=== PATIENT | male | born 1960 | race Caucasian/White ===

== ENCOUNTER 2022-03-10 14:15 | Emergency (ER) | payer MEDICAID, SELFPAY ==
--- NOTE | ~2022-03-10 | XR_ITS ---
EXAMINATION: XR CHEST CLINICAL INFORMATION: Shortness of breath, cough. COMPARISON: None TECHNIQUE: 2 views of the chest were obtained. FINDINGS: No significant abnormality is noted involving the heart, lungs, mediastinum, bony thorax or soft tissues. XR/XR chest 2V IMPRESSION: No acute cardiopulmonary process.
[2022-03-10 14:31] VITALS: BP 137/79; PULSE 82; RESP 20; TEMP 36.4; O2SAT 96; BMI 30.4
[2022-03-10 17:00] LABS: COVID-19 Test Negative (Negative); IDNOW Serial# 16C4AD1C; Influenza A Negative (Negative); Influenza B2 Negative (Negative)
[2022-03-10 17:30] VITALS: BP 130/87; PULSE 74; RESP 17; TEMP 36.9; O2SAT 99
--- NOTE | 2022-03-10 18:08 | ED_ITS ---
HPI - URI/Sore Throat General Chief Complaint: Upper Respiratory Symptoms Stated Complaint: Difficulty breathing, cough Time Seen by Provider: 03/10/22 17:29 Source: patient Mode of arrival: ambulatory Limitations: no limitations History of Present Illness MD elicited complaint: cough, sore throat, rhinorrhea and nasal congestion Onset (ago): day(s) (3) Consistency: constant and progressively worsening Severity: moderate Description of mucous: clear, watery and yellow Able to tolerate fluids by mouth: Yes Exacerbating factors: swallowing Relieving factors: nothing Associated symptoms: myalgias, rhinorrhea, nasal congestion and sore throat Treatments prior to arrival: none Related Data Previous Rx's Medication Instructions Recorded azithromycin 250 mg tablet See Rx Instructions .ROUTE 03/10/22 .COMPLEX #6 tab codeine 10 mg-guaifenesin 100 mg/5 5 ml PO Q6H PRN #120 ml 03/10/22 mL oral liquid (Guaifenesin AC) Allergies Allergy/AdvReac Type Severity Reaction Status Date / Time No Known Allergies Allergy Verified 03/10/22 14:34 Review of Systems Review of Systems: Constitutional : + Chills/fatigues/malaise, No Weight loss, No Fever, No Night Sweats ENT/Mouth : No Hearing loss, No Ear Pain, No Nasal Congestion, No Sinus Pain, No Hoarseness, No sore throat, No Rhinorrhea, No Swallowing Difficulty Eyes: No Eye Pain, No Swelling, No Redness, No Foreign Body, No Discharge, No Vision Changes Cardiovascular : No Chest Pain, No SOB, No Dyspnea on Exertion, No Orthopnea, No Edema, No Palpitations Respiratory : + Cough, + Sputum, No Wheezing, No Smoke Exposure, No Dyspnea Gastrointestinal : No Nausea, No Vomiting, No Diarrhea, No Constipation, No abdominal Pain, No Hematochezia, No Melena Genitourinary : no irregular bleeding, No Dysuria, No Urinary Frequency, No Hematuria, No Urinary Incontinence, No Urgency, No Flank Pain, No Urinary Flow Changes, No Hesitancy Musculoskeletal : No joint pain, No Myalgias, No Joint Swelling Skin : No Skin Lesions, No rash Neuro : No Weakness, No Numbness, No Paresthesias, No Loss of Consciousness, No Dizziness, No Headache Psych : No Anxiety/Panic, No Depression, No SI/HI/AH/VH, No Social Issues, Heme/Lymph: No Bruising, No Bleeding,No Lymphadenopathy Endocrine : No Polyuria, No Polydipsia, No Temperature Intolerance Yes all other systems are reviewed and are negative [facility] Past Medical History Attestation statement: The following information was validated with the patient. Medical History Protein in urine Social History Social History Advance Directives: No Advance Directives Information Provided: No Physical Exam Vital Signs: Vital Signs: Last Vital Signs Temp 98.4 F 03/10/22 17:30 Pulse 74 03/10/22 17:30 Resp 17 03/10/22 17:30 BP 130/87 03/10/22 17:30 Pulse Ox 99 03/10/22 17:30 BMI result Body Mass Index 30.4 vital signs have been reviewed as normal and appeared to be correct. Blood pressure normal. Heart rate normal. Respiration rate normal. Temperature normal. Oxygen saturation normal. Appearance: Alert. Oriented X3. No acute distress. Head: Normal external exam. Normocephalic. Atraumatic. Eyes: PERRLA. EOMI. Conjunctiva and sclera normal. Eyelids normal. ENT: EAC normal. TM's Normal. Pharynx normal. Uvula midline. Moist mucous membranes. No lesions/ulcerations or masses noted on the tongue. Normal voice. No trismus noted. No drooling noted. No muffled voice noted. Neck: Normal inspection. Neck supple. FROM. No adenopathy. Thyroid Normal. No meningeal signs. No neck mass noted. CVS: Normal heart rate and rhythm. Heart sound normal. Pulses normal throughout. No murmurs/rales/gallops. Respiratory: No respiratory distress. Painless inspiration. Breath sounds normal. No wheezes/rales/rhonchi noted. Chest nontender. No signs of trauma noted. No accessory muscle usage noted or decreased air movement noted. Abdomen: Soft and nontender. Bowel sounds normal in all 4 quadrants. No distention noted. No organomegaly noted. No visible injury noted. Back: Full range of motion noted. Nontender. Patient neuro intact bilaterally and distally on all 4 extremities. Patient's reflexes intact bilaterally and distally on all 4 extremities. No rashes/lesion/induration/fluctuance or signs of infection noted. Skin: Skin warm and dry. Normal skin color. Normal skin turgor. No rashes/lesions/lacerations noted. Extremities: No lower extremity edema. No calf tenderness is noted. Extremities exhibit normal range of motion and nontender. Neuro: Oriented X 3. No motor deficit. No sensory deficit. Reflexes normal. Normal steady gait. No focal neuro deficits noted. CN's II-XII intact bilate rally? Vascular: + radial pulses/+ 2 distal pedal pulses/+2 dorsalis pedis b/l. Normal cap refill. No cyanosis noted to upper extremity nails and lower extremity toes nails. Course Course Course Narrative: Patient negative for COVID and flu. Chest x-ray within normal limits. Will DC home with antibiotics and symptomatic treatment instructions return if any new or worsening symptoms to follow up with primary care provider. Patient understands agrees with this plan. MDM - URI/Sore Throat Medical Records Attestation: I reviewed the patient's medical records. Lab Data Attestation: I reviewed the patient's lab results. Labs: Lab Results 03/10/22 03/10/22 Range/Units 16:16 16:16 COVID-19 (EFRA) Negative (Negative) COVID-19 Clin Com See Note Influenza Type A (GUY) Negative (Negative) Influenza Type B (GUY) Negative (Negative) Influenza A & B Note See Note Imaging Data Chest x-ray: Attestation: I personally reviewed and interpreted this imaging study as follows: Radiologist's impression: FINDINGS: No significant abnormality is noted involving the heart, lungs, mediastinum, bony thorax or soft tissues. XR/XR chest 2V IMPRESSION: No acute cardiopulmonary process. Discharge Plan Discharge Clinical Impression: Bronchitis Patient Disposition: Home, Self-Care Instructions: Acute Bronchitis (ED) Prescriptions: New azithromycin 250 mg tablet See Rx Instructions .ROUTE .COMPLEX Qty: 6 0RF Rx Instructions: take 500 mg today (day 1), then 250 mg for 4 days (days 2-5) codeine-guaifenesin [Guaifenesin AC] 10-100 mg/5 mL liquid 5 ml PO Q6H PRN (Reason: cold symptoms) Qty: 120 0RF Referrals: Jatinder Rosas MD [Primary Care Provider] - 2 days Stand Alone Forms: Work/School Release
== END 2022-03-10 18:32 | disposition home or self-care (01) ==
PROVIDERS: Emergency Provider Emergency Medicine; PCP Internal Medicine
DX: J40 Bronchitis, not specified as acute or chronic (principal); Z20.822 Contact with and (suspected) exposure to COVID-19
CPT/HCPCS: 71046; 87502; 87635; 99283; 99284

== ENCOUNTER 2023-10-14 08:26 | Emergency (ER) | payer MEDICARE, SELFPAY ==
--- NOTE | ~2023-10-14 | XR_ITS ---
EXAMINATION: XR FOOT, LEFT CLINICAL INFORMATION: Left great toe foot pain COMPARISON: None available. TECHNIQUE: AP, lateral, and oblique views of the left foot. FINDINGS: Questionable minimally displaced fracture versus periarticular osteophyte involving the lateral base of the first proximal phalanx. Correlation with point tenderness. Soft tissue swelling overlying the first metatarsophalangeal joints along its medial and dorsal aspect. Mild multi joint arthritic changes. Plantar calcaneal heel spur. Enthesopathy at the Achilles tendon insertion site. Mild spurring of the dorsal forefoot. As space alignment are otherwise maintained. XR/XR foot LT min 3V IMPRESSION: 1. Questionable minimally displaced fracture versus periarticular osteophyte involving the lateral base of the first proximal phalanx. Correlation with point tenderness. 2. Soft tissue swelling overlying the first metatarsophalangeal joint along its medial and dorsal aspect. 3. Mild multi joint arthritic changes. 4. Plantar calcaneal heel spur. 5. Enthesopathy at the Achilles tendon insertion site.
[2023-10-14 08:43] VITALS: BP 148/81; PULSE 72; RESP 16; TEMP 36.3; O2SAT 98
--- NOTE | 2023-10-14 09:33 | ED_ITS ---
HPI - General Adult General Chief complaint: Extremity Injury, Lower Stated complaint: Swelling left foot Time Seen by Provider: 10/14/23 09:31 Source: patient Mode of arrival: ambulatory Limitations: no limitations History of Present Illness HPI narrative: Patient is a 63 year old assigned male at with no reported medical history presenting to the emergency department today with left great toe pain. Patient states that over the last 2 days he has had left great toe pain, swelling, and warmth. Patient states that he may have dropped something on it at work but he really doesn't remember a specific incident. Patient denies any dizziness, lightheadedness, abdominal pain, nausea, vomiting, fever, chills, blurry vision, double vision, loss of vision, chest pain, difficulty breathing, shortness of breath, back pain, night sweats, pain with urination, increased urinary frequency, increased urinary urgency, blood in his urine or stool, syncope or a near syncopal episode, bowel incontinence, bladder incontinence, bowel retention, bladder retention, or any other complaints at this time. Onset (ago): day(s) (2) Location: left and lower extremity Radiation: non-radiation Severity: mild Severity scale (1-10): 3 Quality: aching and dull Pain Consistency: constant Relieving factors: none Exacerbating factors: none Associated symptoms: denies other symptoms Treatments prior to arrival: none Related Data Previous Rx's Medication Instructions Recorded azithromycin 250 mg tablet See Rx Instructions PO .COMPLEX #6 03/10/22 tabs codeine 10 mg-guaifenesin 100 mg/5 5 ml PO Q6H PRN cold symptoms #120 03/10/22 mL oral liquid (Guaifenesin AC) mL naproxen 500 mg tablet 500 mg PO BID 7 days #14 tabs 10/14/23 prednisone 20 mg tablet 20 mg PO DAILY 7 days #7 tabs 10/14/23 Allergies Allergy/AdvReac Type Severity Reaction Status Date / Time No Known Allergies Allergy Verified 10/14/23 08:40 Review of Systems Constitutional: Constitutional: Reports no additional constitutional complaints, Denies chills, Denies fever(s) and Denies night sweats Eyes: Eyes: Reports no additional eye complaints, Denies blurry vision, Denies change in vision, Denies diplopia, Denies eye discharge, Denies loss of vision and Denies eye pain ENT: Denies dizziness Cardiovascular: Cardiovascular: Reports no additional cardiovascular complaints, Denies chest pain, Denies lightheadedness, Denies Loss of Consciousness and Denies dyspnea Respiratory: Respiratory: Reports no additional respiratory complaints and Denies dyspnea Gastrointestinal: Gastrointestinal: Reports no additional gastrointestinal complaints, Denies abdominal pain, Denies melena, Denies hematochezia, Denies change in bowel habits and Denies change in stool character Genitourinary: Genitourinary: Reports no additional male genitourinary complaints, Denies hematuria, Denies oliguria, Denies difficulty urinating, Denies dysuria, Denies urinary frequency, Denies urinary hesitancy, Denies urinary incontinence and Denies urinary urgency Musculoskeletal: Musculoskeletal: Reports no additional musculoskeletal complaints, Denies numbness and Denies tingling Comments: left great toe pain and swelling Neurologic: Denies dizziness, Denies loss of vision, Denies numbness and Denies tingling Psychiatric: Psychiatric: Reports no additional psychiatric complaints Endocrine: Endocrine: Reports no additional endocrine complaints Hematologic/Lymphatic: Hematologic/Lymphatic: Reports no additional hematologic/lymphatic complaints Allergic/Immunologic: Allergic/Immunologic: Reports no additional allergic/immunologic complaints PMFSH Past Medical History Attestation statement: The following information was validated with the patient. Source: old records reviewed and nursing notes reviewed Medical History Protein in urine Social History Social History Advance Directives: No Advance Directives Information Provided: Yes Physical Exam ED Vital Signs: Vital Signs - 24 hr 10/14/23 08:43 Temperature 97.3 F Pulse Rate 72 Respiratory Rate 16 Blood Pressure 148/81 H Pulse Oximetry 98 Oxygen Delivery Method Room Air BMI result Body Mass Index 30.0 Const General: cooperative, no acute distress, alert and awake Nutritional Appearance: well nourished Orientation/consciousness: patient oriented x3 Limitations: no limitations HENMT Head: Yes normal to inspection and Yes atraumatic Ears: hearing grossly normal bilaterally and external ears normal General nose exam: Normal external nose present, no nasal discharge noted and no epistaxis Face and sinus: Yes normal facial exam, No abrasion and No laceration Mouth: Normal oral and palatal mucosa present, no drooling and no muffled voice Eyes General: appearance normal, both eyes and all related structures Periorbital: periorbital findings normal Eyelids: Yes eyelids normal Conjunctivae: conjunctivae normal Pupils: Equal, round and reactive pupils present EOM: EOMs intact bilaterally Neck Neck: Yes normal visual inspection, Yes full ROM and Yes no lymphadenopathy Chest Chest palpation & inspection: normal inspection of the chest Resp Effort & Inspection: normal respiratory effort and able to speak in complete sentences GI Inspection: Yes normal to inspection Neuro General: patient oriented x3 and moves all extremities Cranial nerves: Yes Equal, round and reactive pupils present Cognition (Neuro): normal cognition Motor exam (neuro): 5/5 motor strength present throughout Sensory Exam: Normal double simultaneous stimulation for sensation Coordination: [id number] test normal Extrem Other: minimal swelling present to the dorsal aspect of the left great toe with some warmth and erythema General: Yes full ROM and Yes capillary refill normal Psych Appearance: grossly normal Mental Status: mental status grossly normal Affect: normal affect Attitude: cooperative Thought process: Normal thought process present Thought content: Normal thought content present Insight: Good insight present (Psych) Procedures Orthopedic Splinting/Casting Injury #1: Side: left Lower Extremity Injury Location: toe Lower Extremity Immobilizer: boot orthosis Medical Decision Making Medical Decision Making MDM Narrative: Patient is a 63 year old assigned male at with no reported medical history presenting to the emergency department today with left great toe pain. Patient's physical exam was as noted in the physical exam portion of this note. Patient's left foot x-ray showed a questionable minimally displaced fracture versus periarticular osteophyte involving the base of the first proximal phalanx. Patient's clinical presentation is most consistent with gout however, given the x-ray findings, will also treat as fracture. I explained my physical exam findin gs as well as all test results to the patient. I answered all questions asked by the patient. Patient's left foot was placed in a walking boot, without incident. Patient's PMS was intact prior to and after boot placement. I stressed the importance of the patient taking his medication as prescribed. I stressed the importance of the patient following up with his primary care provider and an orthopedic provider. I stressed the importance of the patient returning to the emergency department immediately if his symptoms were to worsen or if he were to develop any dizziness, shortness of breath, difficulty breathing, chest pain, blurry vision, loss of vision, nausea, vomiting, abdominal pain, fever, chills, back pain, or any other complaints. Patient verbalized agreement and understanding with this treatment plan and discharge. Differential Diagnosis Differential Diagnoses: The differential diagnosis associated with the presentation includes Gout Toe fracture Foot fracture Independent Interpretation I performed an independent interpretation of an: Plain X-Ray Interpretation: My interpretation is in agreement with the radiologist's impression of this imaging study. EXAMINATION: XR FOOT, LEFT CLINICAL INFORMATION: Left great toe foot pain COMPARISON: None available. TECHNIQUE: AP, lateral, and oblique views of the left foot. FINDINGS: Questionable minimally displaced fracture versus periarticular osteophyte involving the lateral base of the first proximal phalanx. Correlation with point tenderness. Soft tissue swelling overlying the first metatarsophalangeal joints along its medial and dorsal aspect. Mild multi joint arthritic changes. Plantar calcaneal heel spur. Enthesopathy at the Achilles tendon insertion site. Mild spurring of the dorsal forefoot. As space alignment are otherwise maintained. XR/XR foot LT min 3V IMPRESSION: 1. Questionable minimally displaced fracture versus periarticular osteophyte involving the lateral base of the first proximal phalanx. Correlation with point tenderness. 2. Soft tissue swelling overlying the first metatarsophalangeal joint along its medial and dorsal aspect. 3. Mild multi joint arthritic changes. 4. Plantar calcaneal heel spur. 5. Enthesopathy at the Achilles tendon insertion site. Dictated By: Harris Epstein MD Signed By: Electronically signed by Harris Epstein MD 10/14/23 0940 Radiology Impression Discussion of test interpretation with radiology: I have reviewed the radiologist's reading. Prescription Management I considered prescription management with: Pain Medication (patient prescribed pain medication) Discharge Plan Discharge Clinical Impression: Gout, Fracture of toe Patient Disposition: Home, Self-Care Instructions: Toe Fracture (ED), Low Purine Diet (ED), Gout (ED), Walking Boot (ED) Additional Instructions: Follow up with your primary care provider and an orthopedic provider. Return to the emergency department immediately if your symptoms worsen or if you develop any dizziness, shortness of breath, difficulty breathing, chest pain, blurry vision, loss of vision, nausea, vomiting, abdominal pain, fever, chills, back pain, or any other complaints. Prescriptions: New prednisone 20 mg tablet 20 mg PO DAILY 7 Days Qty: 7 0RF naproxen 500 mg tablet 500 mg PO BID 7 Days Qty: 14 0RF No Action azithromycin 250 mg tablet See Rx Instructions .ROUTE .COMPLEX Qty: 6 0RF Rx Instructions: take 500 mg today (day 1), then 250 mg for 4 days (days 2-5) codeine-guaifenesin [Guaifenesin AC] 10-100 mg/5 mL liquid 5 ml PO Q6H PRN (Reason: cold symptoms) Qty: 120 0RF Referrals: [facility] [Provider Group] (Call to establish and follow up with an orthopedic provider. ) Jatinder Rosas MD [Primary Care Provider] - Stand Alone Forms: Work/School Release Print Language: Bengali
[2023-10-14] MEDS: predniSONE 20 MG TABLET PO (10:39)
[2023-10-14] MEDS: Ketorolac Tromethamine 15 MG/ML VIAL IM (10:39)
[2023-10-14 10:53] VITALS: BP 146/77; PULSE 59; RESP 16; TEMP 36.8; O2SAT 97
== END 2023-10-14 10:55 | disposition home or self-care (01) ==
PROVIDERS: Emergency Provider Student in an Organized Health Care Education/Training Program; PCP Internal Medicine
DX: M10.9 Gout, unspecified (principal); S92.412A Displaced fracture of proximal phalanx of left great toe, initial encounter for closed fracture; X58.XXXA Exposure to other specified factors, initial encounter; Y93.9 Activity, unspecified; Y92.9 Unspecified place or not applicable; Y99.9 Unspecified external cause status
CPT/HCPCS: 73630; 96372; 99284; J1885

== ENCOUNTER 2023-10-30 08:29 | Emergency (ER) | payer MEDICARE, SELFPAY ==
[2023-10-30 09:08] VITALS: BP 137/84; PULSE 85; RESP 18; TEMP 36.6; O2SAT 96; BMI 30.1
--- NOTE | 2023-10-30 09:21 | PC.NURSE ---
refusing all swabs except Strep.
[2023-10-30 09:32] LABS: IDNOW Serial# 58CA691E; Strep A Nucleic Acid Negative (Negative)
--- NOTE | 2023-10-30 09:59 | MHC.EDTECH ---
Patient stated that he did not want to be tested for flu and covid. Made PA aware.
--- NOTE | 2023-10-30 10:02 | ED_ITS ---
HPI - General Adult General Chief complaint: Fever Stated complaint: Fever Sore Throat Time Seen by Provider: 10/30/23 09:51 Source: patient Mode of arrival: ambulatory Limitations: no limitations History of Present Illness HPI narrative: 63-year-old male history of diabetes presents to ED for sore throat only since last night. Patient denies any drooling, change in voice, chest pain, shortness of breath, or neck swelling. Patient denies any coughing chest pain ear pain rash night sweats, weight loss, diarrhea, abdominal pain, symptoms, or vomiting. Related Data Previous Rx's Medication Instructions Recorded azithromycin 250 mg tablet See Rx Instructions PO .COMPLEX #6 03/10/22 tabs codeine 10 mg-guaifenesin 100 mg/5 5 ml PO Q6H PRN cold symptoms #120 03/10/22 mL oral liquid (Guaifenesin AC) mL naproxen 500 mg tablet 500 mg PO BID 7 days #14 tabs 10/14/23 prednisone 20 mg tablet 20 mg PO DAILY 7 days #7 tabs 10/14/23 Allergies Allergy/AdvReac Type Severity Reaction Status Date / Time No Known Allergies Allergy Verified 10/30/23 09:08 Review of Systems Review of Systems: Sore throat Yes all other systems are reviewed and are negative [facility] Past Medical History Medical History Protein in urine Social History Social History Advance Directives: No Advance Directives Information Provided: No Physical Exam ED Vital Signs: Vital Signs - 24 hr 10/30/23 09:08 10/30/23 10:46 Temperature 98 F Pulse Rate 85 Respiratory Rate 18 18 Blood Pressure 137/84 Pulse Oximetry 96 Oxygen Delivery Method Room Air BMI result Body Mass Index 30.1 Const General: cooperative, healthy appearing, comfortable, no acute distress, well developed, alert, awake and Physically active Orientation/consciousness: oriented to person, oriented to place, oriented to time and patient oriented x3 HENMT Head: Yes normal to inspection, Yes No palpable skull fracture present, Yes normocephalic and Yes atraumatic Ears: hearing grossly normal bilaterally, external ears normal, TM's normal bilaterally, TM normal on the right, TM normal on the left, EAC's normal, mastoids normal and no periauricular adenopathy Throat: Yes posterior oropharynx normal, Yes tonsils normal and Yes uvula midline Eyes General: appearance normal, both eyes and all related structures Neck Neck: Yes normal visual inspection, Yes full ROM, Yes no lymphadenopathy, Yes no meningeal signs, Yes trachea midline, Yes supple, No anterior neck swelling and No tender Chest Chest palpation & inspection: normal inspection of the chest and normal palpation of entire chest wall Resp Effort & Inspection: normal respiratory effort and able to speak in complete sentences Auscultation: clear to auscultation bilaterally Cardio Jugular venous distension: no JVD Heart sounds: S1 normal heart sound present and S2 normal heart sound present GI Inspection: Yes normal to inspection Palpation (GI): Soft to palpation, not firm, nontender, no guarding and not rigid General: Yes no CVA tenderness Back/Spine/Pelvis Back: no CVA tenderness and No back tenderness Skin General skin exam: no rashes or lesions noted, elasticity normal and turgor normal Neuro General: oriented to person, oriented to place, oriented to time, patient oriented x3, gait normal, tone normal, moves all extremities, Normal light touch and pain sensation, no meningeal signs, no focal motor deficits, CN's II-XI intact bilaterally and normal sensation to monofilament Extrem General: Yes normal to inspection, Yes full ROM and Yes capillary refill normal Psych Appearance: grossly normal, well kempt and not disheveled Medical Decision Making Medical Decision Making [facility] Narrative: 63-year-old male history diabetes presents to ED for sore throat only since last night without any other constitutional symptoms. Patient denies any drooling, chest pain, shortness of breath, or neck swelling. Strep swab negative. Patient refused COVID influenza swab. Negative for neck swelling or facial swelling. Patient denies any shortness of breath. Not suspecting Luigi angina, retropharyngeal abscess, peritonsillar abscess, or anaphylaxis. Differential Diagnosis Differential Diagnoses: The differential diagnosis associated with the presentation includes ( COVID, strep, influenza, RSV) Lab Data [facility] Lab Attestation statement: I reviewed the patient's lab results. Labs: Lab Results 10/30/23 Range/Units 09:19 S. pyogenes GrpA GUY Negative (Negative) External Record Review External record reviewed: Other ( prior visit) Chronic Conditions Patient?s care impacted by: Diabetes Discharge Plan Discharge Clinical Impression: Sore throat Patient Disposition: Home, Self-Care Instructions: Pharyngitis (ED) Additional Instructions: return to ED immediately for any drooling, change in voice, neck swelling, inability tolerate solid food/ liquids, intractable fever, chills, rash, facial swelling, chest pain, shortness of breath, coughing up blood, or any other concerning symptoms. Please follow-up with your primary care provider. [id number] cepacol lozenges can be used for relief. Tylenol Motrin can be used for fever pain relief Prescriptions: No Action azithromycin 250 mg tablet See Rx Instructions .ROUTE .COMPLEX Qty: 6 0RF Rx Instructions: take 500 mg today (day 1), then 250 mg for 4 days (days 2-5) codeine-guaifenesin [Guaifenesin AC] 10-100 mg/5 mL liquid 5 ml PO Q6H PRN (Reason: cold symptoms) Qty: 120 0RF prednisone 20 mg tablet 20 mg PO DAILY 7 Days Qty: 7 0RF naproxen 500 mg tablet 500 mg PO BID 7 Days Qty: 14 0RF Interventions: ED Discharge Assessment Last Done: 10/30/23 10:47 Discharge Date/Time: 10/30/23 10:47 Print Language: [place]
[2023-10-30 10:46] VITALS: RESP 18
== END 2023-10-30 10:47 | disposition home or self-care (01) ==
PROVIDERS: Emergency Provider Emergency Medicine; PCP Internal Medicine
DX: J02.9 Acute pharyngitis, unspecified (principal); R07.9 Chest pain, unspecified; R06.02 Shortness of breath
CPT/HCPCS: 87651; 99283

== ENCOUNTER 2025-03-16 13:11 | Outpatient (REF) | payer MEDICARE, SELFPAY ==
--- NOTE | ~2025-03-16 | XR_ITS ---
CLINICAL HISTORY: LOW BACK PAIN 5 view, pelvis and bilateral hip Comparison: None Findings: No acute fracture or dislocation. Periarticular osteophyte formation at the bilateral hip joints. The soft tissues are unremarkable. IMPRESSION: No acute findings. This document has been electronically signed by: Scarlet Engel MD on 03/16/2025 17:50:37
== END 2025-03-16 13:12 | disposition home or self-care (01) ==
LOC: HO.XRAY 13:11
PROVIDERS: PCP Internal Medicine; Visit Provider Nurse Practitioner Women's Health
DX: M16.0 Bilateral primary osteoarthritis of hip (principal)
CPT/HCPCS: 73521

== ENCOUNTER → 2025-03-16 13:20 | Outpatient (BNV) | payer MEDICARE, SELFPAY | PROVIDERS: PCP Internal Medicine; Visit Provider Radiology Diagnostic Radiology | DX: M54.50 Low back pain, unspecified (principal) | CPT/HCPCS: 73521 ==

== ENCOUNTER 2025-04-04 14:19 | Outpatient (REF) | payer MEDICARE, SELFPAY ==
--- NOTE | ~2025-04-04 | XR_ITS ---
Exam: Five-view x-ray lumbar spine TECHNIQUE: AP, lateral, bilateral oblique, and lateral spot view x-rays lumbar spine INDICATION: Low back pain COMPARISON: None FINDINGS: Mild degenerative sclerosis is noted in the right greater than left SI joints. There are 5 nonrib-bearing lumbar sequence. T12-L1: There is mild disc space narrowing with calcification in the anterior disc annulus. L1-2: There is mild disc space narrowing and mild degenerative endplate irregularity involving L2. L2-3: There is minimal disc space narrowing. L3-4: Disc spaces preserved. L4-5: Disc space is preserved. There is facet sclerosis. L5-S1: There is mild mild disc space narrowing and endplate osteophytes with sclerosis. There is facet sclerosis. There is likely bony foraminal narrowing. XR/XR lumbar spine 4V min IMPRESSION: Multilevel degenerative disc disease is most advanced at L5-S1 where there is suspected foraminal narrowing. Electronically signed by: Zeeshan Christian MD 04/04/2025 06:19 PM EDT
== END 2025-04-04 14:20 | disposition home or self-care (01) ==
LOC: HO.XRAY 14:19
PROVIDERS: PCP Internal Medicine; Visit Provider Nurse Practitioner Women's Health
DX: M47.816 Spondylosis without myelopathy or radiculopathy, lumbar region (principal)
CPT/HCPCS: 72110

== ENCOUNTER → 2025-04-04 14:30 | Outpatient (BNV) | payer MEDICARE, SELFPAY | PROVIDERS: PCP Internal Medicine; Visit Provider Radiology Diagnostic Radiology | DX: M51.360 Other intervertebral disc degeneration, lumbar region with discogenic back pain only (principal) | CPT/HCPCS: 72110 ==

== ENCOUNTER 2025-04-19 18:10 | Outpatient (REF) | payer MEDICARE, SELFPAY ==
--- NOTE | ~2025-04-19 | MR_ITS ---
EXAMINATION: MR LUMBAR SPINE WITHOUT CONTRAST CLINICAL INFORMATION: Tear at mid lumbar level COMPARISON: Correlated to x-ray dated April 04, 2025. TECHNIQUE: MRI of the lumbar spine was obtained using routine sequences without contrast. FINDINGS: Last rib-bearing vertebra labeled T12. Decreased intervertebral disc signal and height at L5-S1. Decreased intervertebral disc signal at L4-5. Focal hyperintense T2 STIR signal in the posterior intervertebral disc L4-5 likely focal annular fissure. Bone marrow inhomogeneity. No bone marrow STIR signal abnormality. Modic type II endplate changes at L5-S1. There is normal alignment. Conus medullaris ends at pedicle of L1 with normal signal. T12-L1: Facet joint ligamentum flavum hypertrophy. No disc herniation. No central spinal canal or neuroforamina stenosis. L1-2: Facet joint ligamentum flavum hypertrophy. Mild broad-based disc bulging. No compression upon neural elements. L2-3: Broad-based disc bulging. Facet joint and ligamentum flavum hypertrophy. Reduced AP diameter of the thecal sac. No neuroforamina stenosis. L3-4: Broad-based disc bulging. Facet joint and ligamentum flavum hypertrophy. Reduced AP diameter of the thecal sac and neuroforamina. L4-5: Broad-based disc bulging. Facet joint and ligamentum flavum hypertrophy. Reduced AP diameter of the thecal sac. Bilateral neuroforamina narrowing. There is encroachment of the L5 and L4 exiting nerve roots. L5-S1: Broad-based disc bulging. Facet joint hypertrophy. Reduced AP diameter of the thecal sac. Bilateral neuroforamina stenosis encroaching the L5 exiting nerve roots. No prevertebral compartment hematoma, mass or fluid collections. Hyperintense T2 cystic lesions in the parapelvic kidneys MR/MR lumbar spine wo con IMPRESSION: Multilevel lumbar spondylosis L2-3 to L5-S1 more pronounced at L4-5 and L5-S1 encroaching the exiting nerve roots and the neural elements of the thecal sac at L4-5 and L3-4. Electronically signed by: Jamey Renteria MD 04/20/2025 07:18 AM EDT
== END 2025-04-19 18:11 | disposition home or self-care (01) ==
LOC: HO.MRI 18:10
PROVIDERS: Visit Provider Nurse Practitioner Women's Health
DX: M51.360 Other intervertebral disc degeneration, lumbar region with discogenic back pain only (principal); M47.816 Spondylosis without myelopathy or radiculopathy, lumbar region; M47.817 Spondylosis without myelopathy or radiculopathy, lumbosacral region
CPT/HCPCS: 72148

== ENCOUNTER → 2025-04-19 18:19 | Outpatient (BNV) | payer MEDICARE, SELFPAY | PROVIDERS: Visit Provider Radiology Diagnostic Radiology | DX: M47.817 Spondylosis without myelopathy or radiculopathy, lumbosacral region (principal) | CPT/HCPCS: 72148 ==

== ENCOUNTER 2025-07-01 10:44 | Emergency (ER) | payer MEDICARE, SELFPAY ==
--- NOTE | ~2025-07-01 | CT_ITS ---
CLINICAL HISTORY: low abd pain, hematuria w straining R O obs stone CT abdomen and pelvis with contrast Comparison: None. Findings: The lung bases are clear. There are bilateral parapelvic renal cysts. The gallbladder in the rest of the solid organs are normal. No bowel obstruction, pneumoperitoneum, or pneumatosis. There is mild prostatomegaly. There are small bilateral inguinal hernias containing fat only. The urinary bladder is normal. No acute fracture. IMPRESSION: No acute findings. Other findings as above. This document has been electronically signed by: Garcia Garcia MD on 07/01/2025 13:01:06
[2025-07-01 10:45] VITALS: BP 128/77; PULSE 66; RESP 16; TEMP 36.6; O2SAT 95; BMI 30.3
[2025-07-01 11:15] LABS: MANUAL DIFF FLAG NO
[2025-07-01 11:17] LABS: Hematocrit 41.1 % (42.0-52.0); Hemoglobin 14.5 g/dl (14.0-18.0); Imm Gran Abs Auto 0.01 X10*3/uL (0.00-0.03); Imm Gran Pct Auto 0.2 % (0.0-0.4); Lymphocytes Absolute Auto 2.1 X10*3/uL (1.2-4.9); Mean Corpuscular HGB Conc 35.3 g/dl (31.0-36.0); Mean Corpuscular Hemoglobin 30.3 pg (27.0-33.0); Mean Corpuscular Volume 85.8 fL (80.0-98.0); NRBC Abs Auto 0.000 X10*3/uL (0.0-0.012); NRBC Pct Auto 0.0 /100WBC (0.0-0.2); Platelet Count 200 X10*3/uL (160-400); Red Blood Count 4.79 X10*6/uL (4.60-5.80); White Blood Count 6.2 X10*3/uL (4.8-10.8)
[2025-07-01 11:23] LABS: Appearance Urine Clear; Glucose Urine UA Negative (Negative); PH 6.0 (5.0-9.0); Specific Gravity - Urine 1.015 (1.005-1.025); UMIC TRIGGER UACC YES
[2025-07-01 11:32] LABS: Alanine Aminotransferase 36 U/L (0-40); Albumin Level 4.2 g/dL (3.5-5.0); Alkaline Phosphatase 82 U/L (39-117); Anion Gap 14 (12-20); Aspartate Amino Transferase 29 U/L (5-37); Blood Urea Nitrogen 24 mg/dL (9-16); Calcium 9.1 mg/dL (8.4-10.2); Carbon Dioxide 22 mmol/L (22-29); Chloride 110 mmol/L (96-108); Creatinine Clr Calc Pharmacy 95.1; Estimated Glomerular Filt Rate > 60; Potassium 4.1 mmol/L (3.3-5.1); Sodium 142 mmol/L (135-145); Total Protein 7.1 g/dL (6.5-8.0)
[2025-07-01] MEDS: iohexoL 350 MG/ML 100 ML INFUS..BTL IV (11:56)
--- NOTE | 2025-07-01 11:58 | ED.MALEGU ---
HPI - Male Genitourinary General Chief complaint: Urogenital-Male Stated complaint: blood in urine Time Seen by Provider: 07/01/25 11:00 Source: patient, RN notes reviewed and old records reviewed Mode of arrival: ambulatory Limitations: no limitations History of Present Illness ED Provider: Atiya Pelayo PA-C HPI Narrative: 64-year-old male medical history of T2DM presents to the ED due to 1 day of blood in the urine. Patient states last night when urinating he felt ?clogged? had to strain to get the urine out and noticed something come out of the urethra with bloody urine following. Patient states he woke up this morning with the same episode of straining feeling something come out of the urethra and noticing blood. Patient denies blood clots, states he could not see what came out of the urethra. No history of kidney stones in the past. No tobacco history. Denies painful urination, burning with urination, urinary frequency, abdominal pain, flank pain, nausea, vomiting, fevers, black/tarry stool, diarrhea Related Data Previous Rx's ?Medication ?Instructions ?Recorded azithromycin 250 mg tablet See Rx Instructions PO .COMPLEX #6 03/10/22 tabs codeine 10 mg-guaifenesin 100 mg/5 5 ml PO Q6H PRN cold symptoms #120 03/10/22 mL oral liquid (Guaifenesin AC) mL naproxen 500 mg tablet 500 mg PO BID 7 days #14 tabs 10/14/23 prednisone 20 mg tablet 20 mg PO DAILY 7 days #7 tabs 10/14/23 Allergies Allergy/AdvReac Type Severity Reaction Status Date / Time No Known Allergies Allergy Verified 07/01/25 10:49 Review of Systems Review of Systems: CONST: Negative for fever, body aches and chills. HENT: Negative for neck pain/stiffness, headache, congestion, sore throat, swelling. EYES: Negative for discharge/pain or vision changes. RESP: Negative for cough/hemoptysis and shortness of breath. CV: Negative chest pain, difficulty breathing, palpitations. ABD: Negative pain, nausea, vomiting. : Negative increase frequency, dysuria, blood in stool. POS blood in urine, straining MUSC: Negative for muscle aches, edema. SKIN: Negative rash, lesions/sores. NEURO: Negative headache, dizziness, weakness. Yes all other systems are reviewed and are negative [facility] Past Medical History Attestation statement: The following information was validated with the patient. Source: old records reviewed and nursing notes reviewed Medical History Protein in urine Social History Social History Advance Directives: No Advance Directives Information Provided: No Physical Exam Vital Signs: Vital Signs: Last Vital Signs Temp 97.8 F 07/01/25 13:41 Pulse 66 07/01/25 13:41 Resp 16 07/01/25 13:41 BP 128/77 07/01/25 13:41 Pulse Ox 95 07/01/25 13:41 O2 Del Method Room Air 07/01/25 13:41 BMI result Body Mass Index 30.3 GENERAL APPEARANCE: ?AxOx4, generally well-appearing, no acute distress. HEENT: ?NC, AT. MMM. EOMI, clear conjunctiva, oropharynx clear. NECK: ?Supple without lymphadenopathy.? No stiffness or restricted ROM. HEART:? Normal rate and regular rhythm, normal S1/S2, no m/r/g LUNGS:? CTAB, moving air well. No crackles or wheezes are heard. ABDOMEN: ?Soft, nontender, nondistended with good bowel sounds heard. BACK: No CVAT, no obvious deformity. EXTREMITIES: ?Without cyanosis, clubbing or edema. NEUROLOGICAL: ?Grossly nonfocal. Alert and oriented, moving all 4 extremities. Observed to ambulate with normal gait. Skin: ?Warm and dry without any rash. Medications Administered Discontinued Medications Generic Name Dose Route Start Last Admin Trade Name Freq PRN Reason Stop Dose Admin Iohexol 100 ml 07/01/25 11:55 07/01/25 11:56 Iohexol 350 Mg/Ml 100 Ml Infus..Btl IV 07/01/25 11:56 85 ml ONCE ONE Administration Medical Decision Making Medical Decision Making MDM Narrative: 64-year-old male medical history of T2DM presents to the ED due to 1 day of blood in the urine. Patient states last night when urinating he felt ?clogged? had to strain to get the urine out and noticed something come out of the urethra with bloody urine following. Patient states he woke up this morning with the same episode of straining feeling something come out of the urethra and noticing blood. VS on initial observation-normotensive with BP 128/77, pulse rate of 66, respiratory rate of 16, afebrile with oral temp of 97.8?, O2 saturation 95% on room air. On physical exam patient without CVAT, abdomen soft, nontender, no distention, no rigidity, patient well-appearing, nontoxic appearing. Plan: Labs, UA, CT abdomen and pelvis Course 13:20- Labs without leukocytosis/leukopenia, H&H stable, no electrolyte abnormality, total bilirubin elevated at 1.6. UA reveals 3+ urine blood, with >20RBC without evidence of infection. CT abdomen and pelvis reveals bilateral parapelvic renal cysts, no biliary disease, mild prostatomegaly, small bilateral inguinal hernias containing fat only, normal urinary bladder. Patient without urinary symptoms, no CVA tenderness, no abdominal tenderness, no smoking history, no bladder mass seen on CT scan. I believe hematuria may be caused by parapelvic renal cysts, prostatomegaly. I counseled patient that I will refer him to Urology for further evaluation. I counseled him on strict return precautions. Patient is in agreement with the plan and feels comfortable to go home for self-care at this time. Differential Diagnosis Differential Diagnoses: The differential diagnosis associated with the presentation includes Obstructive nephrolithiasis Hydroureter UTI Bladder mass Admission/Observation Consideration of admission/observation: Escalation of care including admission/observation considered Lab Data MDM Lab Attestation statement: I reviewed the patient's lab results. 07/01/25 11:11 07/01/25 11:10 Labs: Lab Results 07/01/25 07/01/25 07/01/25 Range/Units 11:10 11:11 11:17 WBC 6.2 (4.8-10.8) X10*3/uL RBC 4.79 (4.60-5.80) X10*6/uL Hgb 14.5 (14.0-18.0) g/dl Hct 41.1 L (42.0-52.0) % MCV 85.8 (80.0-98.0) fL MCH 30.3 (27.0-33.0) pg MCHC 35.3 (31.0-36.0) g/dl RDW 12.7 (11.0-16.0) % Plt Count 200 (160-400) X10*3/uL MPV 10.0 (9.4-12.4) fL Immature Gran % (Auto) 0.2 (0.0-0.4) % Neut % (Auto) 55.0 (45-73) % Lymph % (Auto) 34.3 (20-40) % [place] % (Auto) 7.3 (2-11) % Eos % (Auto) 2.4 (0-4) % Baso % (Auto) 0.8 (0-2) % Lymph # (Auto) 2.1 (1.2-4.9) X10*3/uL [place] # (Auto) 0.5 (0.1-1.2) X10*3/uL Eos # (Auto) 0.2 (0.0-0.4) X10*3/uL Baso # (Auto) 0.1 (0.0-0.2) X10*3/uL Abs Immat Gran (auto) 0.01 (0.00-0.03) X10*3/uL Absolute Neuts (auto) 3.4 (2.0-8.3) x10*3/uL Absolute Nucleated RBC 0.000 (0.0-0.012) X10*3/uL Nucleated RBC % (auto) 0.0 (0.0-0.2) /100WBC Sodium 142 (135-145) mmol/L Potassium 4.1 (3.3-5.1) mmol/L Chloride 110 H (96-108) mmol/L Carbon Dioxide 22 (22-29) mmol/L Anion Gap 14 (12-20) BUN 24 H (9-16) mg/dL Creatinine 0.86 (0.5-1.4) mg/dL Estim Creat Clear Calc 95.1 Estimated GFR > 60 Random Glucose 134 H (60-115) mg/dL Calcium 9.1 (8.4-10.2) mg/dL Total Bilirubin 1.6 H (0.0-1.0) mg/dL AST 29 (5-37) U/L ALT 36 (0-40) U/L Alkaline Phosphatase 82 (39-117) U/L Total Protein 7.1 (6.5-8.0) g/dL Albumin 4.2 (3.5-5.0) g/dL Urine Color Yellow Urine Appearance Clear Urine pH 6.0 (5.0-9.0) Ur Specific [place] 1.015 (1.005-1.025) Urine Protein Trace (Neg-Trace) mg/dL Urine Glucose (UA) Negative (Negative) mg/dL Urine Ketones Negative (Negative) mg/dL Urine Blood Large (3+) H (Negative) Urine Nitrite Negative (Negative) Ur Leukocyte Esterase Negative (Negative) Urine RBC >20 H (0-2) /HPF Urine WBC 0-5 (0-5) /HPF Ur Squamous Epith Cells 0-2 (0-2) /HPF Urine Bacteria None Seen (None Seen) Hyaline Casts 0-2 (0-2) /LPF Independent Interpretation I performed an independent interpretation of an: CT Scan Interpretation: I personally interpreted the CT abdomen and pelvis which reveals enlarged prostate, renal cysts, without mass on the bladder, I agree with the radiologist's interpretation Radiology Impression Discussion of test interpretation with radiology: I have reviewed the radiologist's reading. Radiologist Impression: CT abdomen and pelvis Findings: The lung bases are clear. There are bilateral parapelvic renal cysts. The gallbladder in the rest of the solid organs are normal. No bowel obstruction, pneumoperitoneum, or pneumatosis. There is mild prostatomegaly. There are small bilateral inguinal hernias containing fat only. The urinary bladder is normal. No acute fracture. IMPRESSION: No acute findings. Other findings as above. This document has been electronically signed by: Garcia Garcia MD on 07/01/2025 13:01:06 Dictated By: Garcia Garcia MD Signed By: <Electronically signed by Garcia Garcia MD in OV> 07/01/25 1301 External Record Review External record reviewed: Inpatient record, Office record and Outpatient record Chronic Conditions Patient?s care impacted by: Diabetes Discharge Plan Discharge Clinical Impression: Hematuria Patient Disposition: Home, Self-Care Instructions: Hematuria (ED) Additional Instructions: You were evaluated in the ED today due to blood in the urine. Your lab work did not show any sign of infection, or in May abnormalities. Your urinalysis did show red blood cells in the urine however no bacteria or signs of infection. The CT of your abdomen and pelvis revealed cysts on the kidneys, mildly enlarged prostate, and bilateral inguinal hernias that contain fat only. I will place a referral to [facility] for further evaluation and management of blood in the urine. Please return to the emergency department if you experience difficulty urinating, decreased urine, inability to urinate, pain with urination, visible blood clots in the urine, fevers over 100.4?, abdominal pain, or any new/worsening/concerning symptoms. [facility] will be contacting you within 2 business?days after being discharged from the Emergency?Department.? During this?phone call, they will inform you when your follow up appointment will be scheduled. If you have not received a call from [facility] after 2 business?days, please call the?office at [phone]. Prescriptions: No Action azithromycin 250 mg tablet See Rx Instructions .ROUTE .COMPLEX Qty: 6 0RF Rx Instructions: take 500 mg today (day 1), then 250 mg for 4 days (days 2-5) codeine-guaifenesin [Guaifenesin AC] 10-100 mg/5 mL liquid 5 ml PO Q6H PRN (Reason: cold symptoms) Qty: 120 0RF prednisone 20 mg tablet 20 mg PO DAILY 7 Days Qty: 7 0RF naproxen 500 mg tablet 500 mg PO BID 7 Days Qty: 14 0RF Referrals: [facility] Services [Provider Group, Urology] Referral Note: painless hematuria, mild prostatomegaly, parapelvic renal cyst, without bladder masses Interventions: ED Discharge Assessment Last Done: 07/01/25 13:41 Discharge Date/Time: 07/01/25 13:42 Print Language: Belgian
[2025-07-01 13:41] VITALS: BP 128/77; PULSE 66; RESP 16; TEMP 36.6; O2SAT 95
== END 2025-07-01 13:42 | disposition home or self-care (01) ==
PROVIDERS: Emergency Provider Emergency Medicine; PCP Internal Medicine
DX: R31.9 Hematuria, unspecified (principal); R10.2 Pelvic and perineal pain; E11.9 Type 2 diabetes mellitus without complications; Z79.899 Other long term (current) drug therapy
CPT/HCPCS: 36415; 74177; 80053; 81001; 85025; 99282; 99285; Q9967

== ENCOUNTER → 2025-07-01 11:32 | Outpatient (BNV) | payer MEDICARE, SELFPAY | PROVIDERS: Emergency Provider Emergency Medicine; PCP Internal Medicine; Visit Provider Radiology Diagnostic Radiology | DX: R10.30 Lower abdominal pain, unspecified (principal); R31.9 Hematuria, unspecified | CPT/HCPCS: 74177 ==

== ENCOUNTER 2025-07-13 14:09 | Outpatient (AMB) | payer MEDICARE, SELFPAY ==
--- NOTE | 2025-07-13 14:27 | A.OFFVIS_ITS ---
Intake Visit Reasons: gross hematuria Intake Note: New Patient is present for gross hematuria Urology Rx: none Blood Thinners:none Imaging completed: CT 07/01/25 Housekeeping Associate Required: No Accompanied by: Self / Same As Patient Allergies No Known Allergies Allergy (Verified 07/13/25 14:28) [facility] Medical History Protein in urine Results AMB Urinalysis, Automated UA Leukoctes 500 Dagoberto/uL Last Edit by HELADIO Baker on 07/13/25 15:42 UA Nitrite Positive Last Edit by HELADIO Baker on 07/13/25 15:42 UA Urobilinogen 1 mg/dL Last Edit by HELADIO Baker on 07/13/25 15:42 UA Protein 300 mg/dL Last Edit by HELADIO Baker on 07/13/25 15:42 UA pH 5.5 Last Edit by Berenice Shelton CCM on 07/13/25 15:42 UA Blood 200 [place]/uL Last Edit by HELADIO Baker on 07/13/25 15:42 UA Specific [place] 1.020 Last Edit by HELADIO Baker on 07/13/25 15: 42 UA Ketone Negative Last Edit by HELADIO Baker on 07/13/25 15:42 UA Bilirubin 1 mg/dL Last Edit by HELADIO Baker on 07/13/25 15:42 UA Glucose 0 mg/dL Last Edit by Berenice Shelton [facility] on 07/13/25 15:42 Assessment & Plan Assessment & Plan (1) Gross hematuria: Code(s): R31.0 - Gross hematuria Category: Medical (2) Complicated urinary tract infection: Code(s): N39.0 - Urinary tract infection, site not specified Category: Medical Orders: Orders Urine Culture Today A49.9 - Bacterial infection, unspecified, N39.0 - Urinary tract infection, site not specified AMB Urinalysis Automated Today Z13.9 - Encounter for screening, unspecified Medications: New levofloxacin 500 mg PO DAILY 5 days 5 tabs 0RF N39.0 - Urinary tract infection, site not specified levofloxacin 500 mg PO DAILY 5 days 5 tabs 0RF N39.0 - Urinary tract infection, site not specified Coding Diagnoses Gross hematuria R31.0 Complicated urinary tract infection N39.0
== END 2025-07-13 14:54 | disposition home or self-care (01) ==
LOC: HO.HUSH 14:09
PROVIDERS: PCP Internal Medicine; Visit Provider Urology
DX: Z13.9 Encounter for screening, unspecified (principal)

== ENCOUNTER 2025-07-13 14:09 | Outpatient (REF) | payer MEDICARE, SELFPAY | END 2025-07-13 14:10 | disposition home or self-care (01) | LOC: HO.LAB 14:09 | PROVIDERS: PCP Internal Medicine; Visit Provider Urology | DX: R31.0 Gross hematuria (principal); A49.9 Bacterial infection, unspecified; N39.0 Urinary tract infection, site not specified | CPT/HCPCS: 81003; 87086; 99202 ==

== ENCOUNTER 2025-08-24 08:52 | Outpatient (REF) | payer MEDICARE, SELFPAY | END 2025-08-24 08:53 | disposition home or self-care (01) | LOC: HO.LAB 08:52 | PROVIDERS: PCP Internal Medicine; Visit Provider Urology | DX: N32.0 Bladder-neck obstruction (principal); R31.0 Gross hematuria | CPT/HCPCS: 52000; 88112 ==

== ENCOUNTER 2025-08-24 08:52 | Outpatient (AMB) | payer MEDICARE, SELFPAY ==
--- NOTE | 2025-08-24 09:08 | A.OFFVIS_ITS ---
Intake Visit Reasons: cysto Intake Note: Patient is present for Cystoscopy for gross hematuria Urology Rx: none Blood Thinners:none Imaging completed: CT 07/01/25 [facility] Required: No Accompanied by: Self / Same As Patient Allergies No Known Allergies Allergy (Verified 08/24/25 09:09) HPI Comments Details: Dimas is a pleasant male. He is a patient of Dr. Rosas. He is seen for the following urologic conditions - gross hematuria Cystoscopy Large median lobe with scarring and clot Recommendation for GreenLight laser prostate Initiate finasteride prior Printed information provided Gross Hematuria Has been persistent UA today in office shows infection Treat with ciprofloxacin Recent CT mild prostatomegaly, otherwise NAD [facility] Medical History Protein in urine Review of Systems Const Denies chills and Denies fever(s) Card Reports no additional complaints and Denies syncope Resp Denies cough GI Denies abdominal pain and Denies heartburn Reports as per HPI and Denies change in libido Neuro Denies syncope Psych Denies change in libido Endo Denies change in libido Physical Exam Const General: cooperative, healthy appearing, comfortable and no acute distress Orientation/consciousness: patient oriented x3 HEENT Face and sinus: Yes normal facial exam Mouth: moist mucous membranes Neck Neck: Yes normal visual inspection, Yes full ROM and Yes trachea midline Chest Chest palpation & inspection: normal inspection of the chest Resp Effort & Inspection: normal respiratory effort, able to speak in complete sentences and no respiratory distress GI Inspection: Yes normal to inspection Back/Spine/Pelvis Cervical Spine: normal cervical lordosis Thoracic/Lumbar Spine: thoracic and lumbar spine normal to inspection Skin General skin exam: no rashes or lesions noted Neuro General: patient oriented x3, gait normal, tone normal and moves all extremities Extrem General: Yes normal to inspection and Yes capillary refill normal Office Procedures Cystoscopy Consent Discussed risk and benefit or proposed procedure with the patient. Information consent for procedure given to the patient. Discussed technical aspects, risks, benefits and alternatives in full. Addressed all of the patient's questions and concerns regarding the procedure. The patient demonstrated knowledge and understanding. They wish to proceed with this procedure. Preparation The patient was prepped in the usual manner. A senior loan processor was present and in the room. Genitalia was prepped with betadine solution in a sterile manner. Lidocaine Jelly 2% was placed into the urethra and 16Fr flexible Olympus cystoscope was inserted into the meatus after adequate lubrication. Procedure Cystoscopy performed using a disposable Urovue digital 16 Sami cystoscope. Meatus non circumcised Urethra anterior and posterior urethra normal Prostatic Urethra prominent median lobe with question of prior TURP Bladder examination with retroflexion of cystoscope Bladder Orifices normal shape and position Bladder Capacity Normal Trabeculations Grade 0 Cellule Formation None Diverticulum Formation None Mucosal Erythema None Bladder Tumor None [id number] DISPOSABLE SCOPE URO-G FLEXIBLE SCOPE Procedure code (CPT) selection complete Office Meds lidocaine HCl 2 % mucosal jelly in applicator Performing Provider: Sergo Rubio MD Performing Location: [facility] Administered by: Hortencia Tang RN on 08/24/25 09:23 Dose Route Admin Location Dispensed Lot Number Expiration Date NDC Mysql Database Developer 10 mL intra-urethral 10 mL nitrofurantoin monohydrate/macrocrystals 100 mg capsule Performing Provider: Sergo Rubio MD Performing Location: [facility] Administered by: Hortencia Tang RN on 08/24/25 09:23 Dose Route Admin Location Dispensed Lot Number Expiration Date ND Mysql Database Developer 100 mg PO 1 cap Results AMB Urinalysis, Automated UA Leukoctes 0 Dagoberto/uL Last Edit by Brisa Kerr [facility] on 08/24/25 09:19 UA Nitrite Negative Last Edit by Brisa Kerr [facility] on 08/24/25 09:19 UA Urobilinogen 0.2 mg/dL Last Edit by Brisa Kerr [facility] on 08/24/25 09:19 UA Protein 0 mg/dL Last Edit by Brisa Kerr [facility] on 08/24/25 09:19 UA pH 6.0 Last Edit by Brisa Kerr [facility] on 08/24/25 09:19 UA Blood 25 Emerson/uL Last Edit by Brisa Kerr [facility] on 08/24/25 09:19 UA Specific Milo 1.020 Last Edit by Brisa Kerr [facility] on 08/24/25 09:1 9 UA Ketone Negative Last Edit by Brisa Kerr [facility] on 08/24/25 09:19 UA Bilirubin 0 mg/dL Last Edit by BrisaHELADIO Alfonso on 08/24/25 09:19 UA Glucose 0 mg/dL Last Edit by HELADIO Burris on 08/24/25 09:19 Results Reviewed Results Reviewed: Laboratory Last Values Urine pH (Auto) 6.0 08/24/25 09:18 Specific Milo (Auto) 1.020 08/24/25 09:18 Urine Protein (Auto) 0 mg/dL 08/24/25 09:18 Glucose (UA)(Auto) 0 mg/dL 08/24/25 09:18 Urine Ketones (Auto) Negative 08/24/25 09:18 Urine Blood (Auto) 25 Emerson/uL 08/24/25 09:18 Urine Nitrite (Auto) Negative 08/24/25 09:18 Urine Bilirubin (Auto) 0 mg/dL 08/24/25 09:18 Urine Urobilinogen (Auto) 0.2 mg/dL 08/24/25 09:18 Leukocyte Esterase (Auto) 0 Dagoberto/uL 08/24/25 09:18 Assessment & Plan Assessment & Plan (1) Bladder outlet obstruction: Code(s): N32.0 - Bladder-neck obstruction Category: Medical Plan We discussed the nature of the decision and reasonable options for performing a prostate intervention. Interventions include TURP, GreenLight laser enucleation of the prostate, GreenLight laser ablation of the prostate, transurethral incision of the prostate, and I-Tend prostate procedure. Options such as medical therapy were discussed. The relative uncertainties and benefits related to each alternate procedure were adequately discussed. General surgical risks including, but not limited to, pain, bleeding, infection, myocardial infarction, pulmonary embolus, deep vein thrombosis and cerebrovascular accident which may result in further hospitalization were discussed. Full disclosure of the procedure as well as all major risks, benefits and complications were discussed including but not limited to damage to the urethra or bladder neck, recurrent BPH, retrograde ejaculation, bladder infection, urge, de javier frequency, incomplete emptying, dysuria, remote chance of erectile dysfunction, epididymitis, and meatal stenosis. The success rate of the procedure was discussed. Success of the procedure in the short-term does not necessarily guarantee that long-term success will be maintained. Suitable follow up will need to be maintained. The patient showed understanding of discussion. An opportunity was provided for questions to be answered and wishes to proceed with the following procedure. - GreenLight laser Orders: Orders AMB Cystoscopy Today R31.0 - Gross hematuria Medications: New finasteride 5 mg PO DAILY 90 tabs 1RF 90 days N32.0 - Bladder-neck obstruction Patient Instructions: This note is constructed using voice recognition software. While every effort has been made to ensure accuracy internal medicine physician assistant errors may have been included. Imaging studies, laboratory and physical exam results were discussed and reviewed in detail. No major barriers to patient understanding were identified. An opportunity to ask questions regarding the treatment plan was provided. All questions were answered. The patient expressed understanding and agreement with the above treatment plan. The patient is aware they should contact our office by phone for worsening of their current condition or the appearance of new urologic symptoms. Compliance is encouraged with any medications and followup testing that is ordered. It is a privilege to participate in the urologic care of your patient. If you have any questions or concerns regarding treatment for the above conditions, or other urologic issues, please do not hesitate to contact me. The office telephone contact is [phone]. Sincerely, Dr Sergo Rubio MD, [facility] - Urology Compassionate Specialist Care for the Genitourinary System Coding Level of Care Code Est Pt Level 4 (08204) Diagnoses Bladder outlet obstruction N32.0 CPT Codes Cystoscopy - CPT: 29916-[id number] ([id number])
== END 2025-08-24 09:39 | disposition home or self-care (01) ==
LOC: HO.HUSH 08:52
PROVIDERS: PCP Internal Medicine; Visit Provider Urology
DX: R31.0 Gross hematuria (principal); N32.0 Bladder-neck obstruction
CPT/HCPCS: 52000